=== PATIENT | male | born 1965 | race Caucasian/White ===

== ENCOUNTER → 2017-06-10 | Outpatient (CLI) | payer OTHER ==
[~2017-06-10] MED LIST: ALB18R INH; DIPH-741 PO; FEXO-67 PO; GINK40TA PO; LEV125 PO; LEVO25TA56 PO; LORA-629 PO; METH4TAB66 PO; MONT10TA4 PO; MULT-1335 PO; OMEG-11 PO; POTA99TA6 PO; PRED-1 PO; RANI-324 PO; SULF-198 PO; VITA-175 PO
[2017-06-10 12:06] LABS: PLATELET COUNT, AUTOMATED 271 K/uL (150-450)
--- NOTE | 2017-06-10 12:34 | RADIOLOGY IMAGING REPORT ---
FACILITY: [facility] - [place] PATIENT NAME: Ashish Conway : 1965 MR: [id number] V: [id number] EXAM DATE: ORDERING PHYSICIAN: MIRTHA LANCASTER TECHNOLOGIST: Location: [facility] - [place] Patient: Ashish Cnoway : 1965 Visit/Account:[id number] Date of Sevice: 06/10/2017 KUB SINGLE VIEW ABDOMEN INDICATION: Abdominal pain. COMPARISON: None available FINDINGS: Supine AP view the abdomen. Some stool seen within the colon. Bowel gas pattern is nonobs tructed nondilated. Abdominal soft tissues grossly normal without suspicious lucencies or abnormal ca lcifications. Surgical clips in the right upper quadrant. Lung bases are clear. No acute bony abnorma lity. IMPRESSION: Unremarkable exam. Report Dictated By: Neel Moreland at 06/10/2017 12:29 PM Report E-Signed By: Neel Moreland at 06/10/2017 12:31 PM WSN:[id number]
== END ==
LOC: LAB 11:11
PROVIDERS: ATTEND Nurse Practitioner Primary Care
DX: R10.9 Unspecified abdominal pain (principal)
CPT/HCPCS: 36415; 74018; 81001; 82040; 82247; 82310; 82374; 82435; 82565; 82947; 84075; 84132; 84155; 84295; 84450; 84460; 84520; 85025

== ENCOUNTER 2017-06-21 21:14 | Emergency (ER) | payer OTHER ==
--- NOTE | 2017-06-21 21:16 | ER Report ---
History and Physical Time Seen By MD: 21:16 HPI/ROS CHIEF COMPLAINT: Flushing, fever HISTORY OF PRESENT ILLNESS: 51-year-old male with red scan after taking Bactrim DS for 10 days for left lower quadrant abdominal pain, presumed to be diverticulitis. Patient's pain is resolved. REVIEW OF SYSTEMS: Respiratory: No cough, no dyspnea. Cardiovascular: No chest pain, no palpitations. Gastrointestinal: No vomiting, no abdominal pain. Musculoskeletal: No back pain. Allergies: Coded Allergies: Penicillins (Verified Allergy, Unknown, UNKNOWN, 06/21/17) Home Meds Active Scripts Levothyroxine Sodium (LEVOTHYROXINE SODIUM) 0.125 Mg Tab, 1-2 TAB PO QDAY, #34 TAB 0 Refills 2 tabs on Tuesday, 1 tab q d remainder of the week. Prov:MIRTHA LANCASTER DNP, STAFF TOXICOLOGIST-BC 06/10/17 Reported Medications Albuterol Sulfate (VENTOLIN HFA) 18 Gm Inh, 2 PUFF INH Q4-6H Y for shortness of breath, INH 03/18/15 Montelukast Sodium (MONTELUKAST SODIUM) 10 Mg Tablet, 1 TAB PO QDAY, TAB 03/18/15 Discontinued Scripts Sulfamethoxazole/Trimet 800-160 Mg Tab (BACTRIM DS TABLET) 1 Each Tablet, 1 TAB PO Q12H for 10 Days, #20 TAB 0 Refills Prov:MIRTHA LANCASTER DNP, STAFF TOXICOLOGIST-BC 06/10/17 Past Medical/Surgical History Past Medical History Neurologic: Reports hx of: neuropathy (polyneuropathy feet after [place]) HEENT: Reports hx of: tinnitus Respiratory: Reports hx of: asthma (2009) Gastrointestinal: Reports hx of: diverticulitis Endocrine: Reports hx of: hypothyroidism (2011) Hematology/oncology: Denies hx of: prostate cancer Past Surgical History Ruptured groin 1979, L ankle ganglion cyst 08/07/03,Hypertrophy 5th toe02/23/12 Gastrointestinal: Reports hx of: appendectomy (1983) cholecystectomy (01/04/06 lap homa) hernia repair (1964, bilateral) Musculoskeletal: Reports hx of: arthroscopy (R knee 12/16/03, R knee 2009) spinal surgery (L5-S1 L[place] 2009) Ruptured groin 1979, L ankle ganglion cyst 08/07/03,Hypertrophy 5th toe02/23/12 Reviewed Nurses Notes: Yes Old Medical Records Reviewed: Yes Hx Smoking: No Smoking Status: Never Smoker Hx Substance Use Disorder: No Hx Alcohol Use: Yes (OCC) Constitutional Vital Sign - Last 24 Hours 06/21/17 06/21/17 06/21/17 06/21/17 21:19 21:21 21:30 21:45 Temp 100.3 Pulse 97 89 85 Resp 14 B/P (MAP) 122/85 (97) 122/85 111/54 (73) Pulse Ox 94 93 93 O2 Delivery Room Air 06/21/17 06/21/17 06/21/17 22:00 22:15 22:30 Pulse 82 90 85 B/P (MAP) 96/67 (77) 106/60 (75) Pulse Ox 93 93 92 Physical Exam Vital signs stable, temperature 100.3, pulse ox normal General Appearance: The patient is alert, has no immediate need for airway protection and no current signs of toxicity., Erythematous skin and flushing on all body surfaces HEENT: Pupils equal and round no injection. TMs normal, oropharynx without redness or exudate, mucous. Membranes are moist Respiratory: Chest is non tender, lungs are clear to auscultation. No wheezing or rails Cardiac: regular rate and rhythm Gastrointestinal: Abdomen is soft and non tender, no masses, bowel sounds normal. Musculoskeletal: Neck: Neck is supple and non tender. No lymphadenopathy, no meningismus Extremities have full range of motion and are non tender. Skin: No rashes or lesions. DIFFERENTIAL DIAGNOSIS: After history and physical exam differential diagnosis was considered for adult fever including but not limited to viral syndromes including influenza, urinary tract infection, pneumonia, adverse drug reaction and sepsis. Medical Decision Making Data Points Result Diagram: 06/21/17212906/21/172129 Laboratory Hematology Test 06/21/17 21:20 06/21/17 21:30 06/21/17 21:41 06/21/17 21:58 Urine Color Yellow Urine Clarity Clear Urine pH 5.0 pH (4.8-9.5) Urine Specific [place] 1.019 Urine Protein Negative mg/dL (NEGATIVE) Urine Glucose (UA) Negative mg/dL (NEGATIVE) Urine Ketones Negative mg/dL (NEGATIVE) Urine Blood Negative (NEGATIVE) Urine Nitrite Negative (NEGATIVE) Urine Bilirubin Negative (NEGATIVE) Urine Urobilinogen Negative mg/dL (0.2-1.9) Urine Leukocyte Esterase Negative (NEGATIVE) Urine RBC 1 /HPF (0-2/HPF) Urine WBC None /HPF (0-5/HPF) Urine Squamous Epithelial Cells Few /LPF (</=FEW) Urine Bacteria Negative /HPF (NONE-FEW) Urine Mucus None /HPF (NONE-FEW) Red Blood Count 4.61 M/uL (4.00-5.60) Mean Corpuscular Volume 88.2 fL (80.0-96.0) Mean Corpuscular Hemoglobin 30.8 pg (26.0-33.0) Mean Corpuscular Hemoglobin Concent 34.9 g/dL (32.0-36.0) Red Cell Distribution Width 13.5 % (11.5-14.5) Mean Platelet Volume 8.4 fL (7.2-11.1) Neutrophils (%) (Auto) 75.9 % (39.4-72.5) Lymphocytes (%) (Auto) 10.4 % (17.6-49.6) Monocytes (%) (Auto) 7.5 % (4.1-12.4) Eosinophils (%) (Auto) 5.5 % (0.4-6.7) Basophils (%) (Auto) 0.7 % (0.3-1.4) Nucleated RBC Relative Count (auto) 0.0 /100WBC Neutrophils # (Auto) 5.1 K/uL (2.0-7.4) Lymphocytes # (Auto) 0.7 K/uL (1.3-3.6) Monocytes # (Auto) 0.5 K/uL (0.3-1.0) Eosinophils # (Auto) 0.4 K/uL (0.0-0.5) Basophils # (Auto) 0.0 K/uL (0.0-0.1) Nucleated RBC Absolute Count (auto) 0.00 K/uL Sodium Level 132 mmol/L (137-145) Potassium Level 4.0 mmol/L (3.5-5.0) Chloride Level 101 mmol/L (98-107) Carbon Dioxide Level 19 mmol/L (22-30) Blood Urea Nitrogen 14 mg/dl (9-21) Creatinine 1.40 mg/dl (0.66-1.25) Glomerular Filtration Rate Calc 53.0 Random Glucose 111 mg/dl (75-110) Lactate 0.9 mmol/L (0.7-2.1) Calcium Level 8.4 mg/dl (8.4-10.2) Total Bilirubin 0.4 mg/dl (0.2-1.3) Aspartate Amino Transf (AST/SGOT) 40 U/L (0-35) Alanine Aminotransferase (ALT/SGPT) 93 U/L (0-56) Alkaline Phosphatase 107 U/L (0-126) C-Reactive Protein 7.5 mg/dl (<1.0) Total Protein 6.2 gm/dl (6.3-8.2) Albumin 3.3 g/dl (3.5-5.0) Thyroid Stimulating Hormone (TSH) 1.33 uIU/ml (0.46-4.68) Influenza Virus Type A (PCR) Negative (NEGATIVE) Influenza Virus Type B (PCR) Negative (NEGATIVE) Chemistry Test 06/21/17 21:20 06/21/17 21:30 06/21/17 21:41 06/21/17 21:58 Urine Color Yellow Urine Clarity Clear Urine pH 5.0 pH (4.8-9.5) Urine Specific [place] 1.019 Urine Protein Negative mg/dL (NEGATIVE) Urine Glucose (UA) Negative mg/dL (NEGATIVE) Urine Ketones Negative mg/dL (NEGATIVE) Urine Blood Negative (NEGATIVE) Urine Nitrite Negative (NEGATIVE) Urine Bilirubin Negative (NEGATIVE) Urine Urobilinogen Negative mg/dL (0.2-1.9) Urine Leukocyte Esterase Negative (NEGATIVE) Urine RBC 1 /HPF (0-2/HPF) Urine WBC None /HPF (0-5/HPF) Urine Squamous Epithelial Cells Few /LPF (</=FEW) Urine Bacteria Negative /HPF (NONE-FEW) Urine Mucus None /HPF (NONE-FEW) White Blood Count 6.7 k/uL (4.5-11.0) Red Blood Count 4.61 M/uL (4.00-5.60) Hemoglobin 14.2 g/dL (14.0-18.0) Hematocrit 40.7 % (42.0-52.0) Mean Corpuscular Volume 88.2 fL (80.0-96.0) Mean Corpuscular Hemoglobin 30.8 pg (26.0-33.0) Mean Corpuscular Hemoglobin Concent 34.9 g/dL (32.0-36.0) Red Cell Distribution Width 13.5 % (11.5-14.5) Platelet Count 182 K/uL (150-450) Mean Platelet Volume 8.4 fL (7.2-11.1) Neutrophils (%) (Auto) 75.9 % (39.4-72.5) Lymphocytes (%) (Auto) 10.4 % (17.6-49.6) Monocytes (%) (Auto) 7.5 % (4.1-12.4) Eosinophils (%) (Auto) 5.5 % (0.4-6.7) Basophils (%) (Auto) 0.7 % (0.3-1.4) Nucleated RBC Relative Count (auto) 0.0 /100WBC Neutrophils # (Auto) 5.1 K/uL (2.0-7.4) Lymphocytes # (Auto) 0.7 K/uL (1.3-3.6) Monocytes # (Auto) 0.5 K/uL (0.3-1.0) Eosinophils # (Auto) 0.4 K/uL (0.0-0.5) Basophils # (Auto) 0.0 K/uL (0.0-0.1) Nucleated RBC Absolute Count (auto) 0.00 K/uL Glomerular Filtration Rate Calc 53.0 Lactate 0.9 mmol/L (0.7-2.1) Calcium Level 8.4 mg/dl (8.4-10.2) Total Bilirubin 0.4 mg/dl (0.2-1.3) Aspartate Amino Transf (AST/SGOT) 40 U/L (0-35) Alanine Aminotransferase (ALT/SGPT) 93 U/L (0-56) Alkaline Phosphatase 107 U/L (0-126) C-Reactive Protein 7.5 mg/dl (<1.0) Total Protein 6.2 gm/dl (6.3-8.2) Albumin 3.3 g/dl (3.5-5.0) Thyroid Stimulating Hormone (TSH) 1.33 uIU/ml (0.46-4.68) Influenza Virus Type A (PCR) Negative (NEGATIVE) Influenza Virus Type B (PCR) Negative (NEGATIVE) Urinalysis Test 06/21/17 21:20 Urine Color Yellow Urine Clarity Clear Urine pH 5.0 pH (4.8-9.5) Urine Specific [place] 1.019 Urine Protein Negative mg/dL (NEGATIVE) Urine Glucose (UA) Negative mg/dL (NEGATIVE) Urine Ketones Negative mg/dL (NEGATIVE) Urine Blood Negative (NEGATIVE) Urine Nitrite Negative (NEGATIVE) Urine Bilirubin Negative (NEGATIVE) Urine Urobilinogen Negative mg/dL (0.2-1.9) Urine Leukocyte Esterase Negative (NEGATIVE) Urine RBC 1 /HPF (0-2/HPF) Urine WBC None /HPF (0-5/HPF) Urine Squamous Epithelial Cells Few /LPF (</=FEW) Urine Bacteria Negative /HPF (NONE-FEW) Urine Mucus None /HPF (NONE-FEW) Microbiology Microbiology Date/Time Source Procedure Growth Status 06/21/17 21:41 Blood Peripheral Draw Blood Culture - Preliminary NO GROWTH AFTER 1 DAY, REINCUBATED Resulted 06/21/17 21:30 Blood Peripheral Draw Blood Culture - Preliminary NO GROWTH AFTER 1 DAY, REINCUBATED Resulted EKG/Imaging Imaging X-ray: Single view portable chest x-ray was obtained. I viewed the images myself on the PACS system. My interpretation of the images is: No infiltrate, no effusion, normal mediastinum. The radiologist interpretation had no clinically significant variation from this interpretation. ED Course/Re-evaluation Clinical Indication for ER IV: Hydration, IV Access ED Course Patient was admitted to an examination room. H&P was done. The differential diagnoses was considered. On clinical examination. Patient has a fever. He has flushed skin. He's been on sulfa for 10 days for presumed diverticulitis. She reports his abdominal pain has resolved. However he is developed fever and flushing. I suspect he 7, allergic reaction to sulfa. He's given Solu-Medrol and Benadryl. Diagnostic evaluation shows no other signs of infection. A rapid influenza is negative. Patient's advised ibuprofen and Benadryl for several days. He is advised to discontinue sulfa and listed as an allergy in the future. Decision to Disposition Date: Jun 21, 2017 Decision to Disposition Time: 22:17 Depart Departure Latest Vital Signs Vital Signs Date Time Temp Pulse Resp B/P (MAP) Pulse Ox O2 Delivery O2 Flow Rate FiO2 06/21/17 22:30 85 106/60 (75) 92 06/21/17 21:21 100.3 14 Room Air Impression: Primary Impression: Allergic reaction caused by a drug Additional Impression: Drug induced fever Condition: Improved Disposition: HOME OR SELF-CARE Referrals: SONG KENT MD (PCP) Patient Instructions: General Allergic Reaction (ED) Additional Instructions: List Sulfa/Trimethoprim as an allergy in the future Follow-up with her primary care if unimproved in 3-5 days. Problem Qualifiers Primary Impression: Allergic reaction caused by a drug Encounter type: initial encounter Qualified Codes: T78.40XA - Allergy, unspecified, initial encounter SHRUTHI ORTIZ DO Jun 21, 2017 21:16
[2017-06-21] MEDS ORDERED: NS(*) 0.9% 1000 ML BAG 1,000 ML IV ONE (21:28)
[2017-06-21] MEDS ORDERED: methylPREDNIS SUCC 125 MG/2ML IVP ONE (21:30)
[2017-06-21] MEDS ORDERED: diphenhydrAMINE 50 MG/ML VIAL IVP ONE (21:30)
[2017-06-21 21:41] LABS: PLATELET COUNT, AUTOMATED 182 K/uL (150-450)
[2017-06-21 22:30] VITALS: BP 106/60
--- NOTE | 2017-06-21 22:44 | RADIOLOGY IMAGING REPORT ---
FACILITY: [facility] - [place] PATIENT NAME: Ashish Conway : 1965 MR: [id number] V: [id number] EXAM DATE: ORDERING PHYSICIAN: SHRUTHI ORTIZ TECHNOLOGIST: Location: [facility] Patient: Ashish Conway : 1965 Visit/Account:[id number] Date of Sevice: 06/21/2017 EXAMINATION: Portable AP Chest HISTORY: Fever. COMPARISON: 02/09/2011. FINDINGS: The lungs are clear. No focal consolidation or pleural effusion. No pneumothorax. Normal cardiomedi astinal silhouette, with normal heart size and pulmonary vascularity. No acute osseous findings. Plate and screw fixation along the cervical spine. IMPRESSION: No evidence of acute cardiopulmonary disease. Report Dictated By: Cameron Cruz MD at 06/21/2017 10:40 PM Report E-Signed By: Cameron Cruz MD at 06/21/2017 10:41 PM WSN:[id number]
== END 2017-06-21 22:54 | disposition home or self-care (01) ==
LOC: ER 21:36
DX: T78.40XA Allergy, unspecified, initial encounter (principal); R50.2 Drug induced fever
CPT/HCPCS: 36415; 71045; 81001; 83605; 84443; 85025; 86140; 87040; 87502; 96361; 96374; 96375; 99284; J1200; J2930; J7030; 82040; 82247; 82310; 82374; 82435; 82565; 82947; 84075; 84132; 84155; 84295; 84450; 84460; 84520

== ENCOUNTER → 2017-10-25 | Outpatient (CLI) | payer OTHER ==
[~2017-10-25] MED LIST changes: -RANI-324 PO; +RANI-366 PO
== END ==
LOC: LAB 09:04
PROVIDERS: ATTEND Internal Medicine Gastroenterology
DX: R74.0 Nonspecific elevation of levels of transaminase and lactic acid dehydrogenase [LDH] (principal)
CPT/HCPCS: 36415; 82040; 82247; 82248; 82465; 83540; 83550; 83718; 84075; 84155; 84450; 84460; 84478

== ENCOUNTER → 2018-06-13 | Outpatient (CLI) | payer OTHER ==
[~2018-06-13] MED LIST changes: +CIPR750T84 PO; +GABA-549 PO
--- NOTE | 2018-06-13 17:10 | RT STRESS TEST REPORT ---
FACILITY: [facility] - [place] PATIENT NAME: BALBINA PRESLEY : [id number] MR: [id number] V: [id number] EXAM DATE: ORDERING PHYSICIAN: SONG KENT TECHNOLOGIST: Diana Acquisition Time: 2018-06-13 08:43:56 Total Exercise Time: 00:10:18 Test Indications: Chest Pain / Discomfort Medications: None Protocol: BRUCE2 Max HR: 157 BPM 94% of Pred: 166 BPM Max BP: 195/087 mmHG Max Work Load: 12.2 METS Impression: No EKG changes to suggest ischemia Resting HTN with exagerrated response Confirmed by NEIDA FERGUSON ([id number]) on 06/13/2018 5:10:17 PM Referred By: Overread By: NEIDA FERGUSON
== END ==
LOC: RESP 02:21
PROVIDERS: ATTEND Internal Medicine
DX: R07.9 Chest pain, unspecified (principal)
CPT/HCPCS: 93017